=== PATIENT | male | born 1990 | race Caucasian/White ===

== ENCOUNTER 2023-08-27 04:21 | Emergency (ER) | payer OTHER, SELFPAY ==
[2023-08-27 04:22] VITALS: BMI 30.5
[2023-08-27 04:31] VITALS: BP 135/74
--- NOTE | 2023-08-27 04:47 | ED.GENMED ---
History of Present Illness
<DIMITRY Cullen - Last Filed: 08/27/23 06:34>
General
Chief Complaint: Chest Pain
Source: patient
Time Seen by Provider: 08/27/23 04:47
Travel History
Have you had any contact with someone who has COVID-19?: No
Do you have any symptoms of coronavirus? Fever > 100 degrees, chills, cough, shortness of breath, sore throat, loss of taste or smell, muscle aches, or headache?: No
History of Present Illness
History of Present Illness:
Pt is a pleasant 33 year old male with no significant PMHx presenting for chest pain since 3 am. He states he woke up from cramping in his quads and that is when he noticed his chest felt tight with a dull pain, pointing to his epigastric area. He
states the pain was a 6/10 in severity and is now a 2/10. He had an instance of the pain radiating to his back but states the pain is no longer radiating. He states he has been on his feet more than usual recently painting but otherwise denies any
changes to his workout routine, noting he exercised often. He reports mild nausea when he woke up but that has since dissipated. He states he tried taking Tums shortly after the onset of pain with no relief. He reports he was given aspirin and that
gave him some relief. He denies recent injury, SOB, diaphoresis, palpitations, arm pain, jaw pain, vomiting, abdominal pain, or recent sickness or travel. He states his father had a valvular issue, reporting he believes his father's tricuspid valve
only had two leaflets, leading to cardiomyopathy. He notes his father has since passed due to his heart condition.
Past History
<DIMITRY Cullen - Last Filed: 08/27/23 06:34>
Past History
ED Past Medical History: None
ED Past Surgical History: None
Social History
Tobacco: Non-smoker
Alcohol: Occasional
Personal: Single
Living: with family
Employment: Employed
Review of Systems
<DIMITRY Cullen - Last Filed: 08/27/23 06:34>
Review of Systems
All Other Systems: Not applicable
Constitutional: Reports no symptoms
EENT: Reports no symptoms
Respiratory: Reports no symptoms
Cardiac: Reports chest pain
ABD/GI: Reports nausea
: Reports no symptoms
Musculoskeletal: Reports other (leg cramping)
Skin: Reports no symptoms
Neurological: Reports no symptoms
Endocrine: Reports no symptoms
Hematologic/Lymphatic: Reports no symptoms
Psychiatric: Reports no symptoms
Phy Exam
<DIMITRY Cullen - Last Filed: 08/27/23 06:34>
General Physical Exam
General Presentation: well appearing and no apparent distress
General age: appears stated age
General Skin: warm and dry
General Habitus: normal
General Mental: alert
General Hydration: appears well hydrated
Cardiovascular Exam
Cardiovascular Exam: regular rate/rhythm, no edema, no gallop, no murmur, normal peripheral pulses and other (negative Eric's sign)
Pulmonary Exam
Pulmonary Exam: lungs clear, no respiratory distress and chest non tender
Gastrointestinal Exam
Gastrointestinal Exam: normal bowel sounds, non tender, soft, no pulsatile mass and non distended
Neurological Exam
Neurological Exam: alert
Mental
Mental Status: oriented to person, oriented to place and oriented to time
Musculoskeletal Exam
Musculoskeletal Exam: no edema
Skin Exam
Skin Exam: normal color and warm/dry
Psychiatric Exam
Psychiatric Exam: normal mood/affect
Scores
<DIMITRY Cullen - Last Filed: 08/27/23 06:34>
Heart Score for Chest Pain Patients
STEMI patient?: No
History: Slightly or Non-Suspicious
ECG: Nonspecific Repolarization
Age: </= 45 years
Risk Factors: No Risk Factors
Troponin: </= Normal Limit
Heart Score for Chest Pain Patients: 1
Heart Score Risk: 2.5% MACE over next 6 weeks
<Pankaj Massey, DO - Last Filed: 08/27/23 06:44>
Heart Score for Chest Pain Patients
Heart Score for Chest Pain Patients: 1
Heart Score Risk: 2.5% MACE over next 6 weeks
<Erik Thompson, DO - Last Filed: 08/27/23 10:39>
Heart Score for Chest Pain Patients
Heart Score for Chest Pain Patients: 1
Heart Score Risk: 2.5% MACE over next 6 weeks
Course
<Sara Mcfarlane STPA - Last Filed: 08/27/23 06:34>
Orders/Labs/Results
Orders:
Orders
08/27/23 04:28
Electrocardiogram (*1) Urgent
Reason for Study: Chest Pain
08/27/23 04:29
EKG- Treatment ONCE
08/27/23 04:42
Complete Blood Count/With Diff Urgent
Comprehensive Metabolic Panel Urgent
Troponin I Urgent
08/27/23 06:16
CR Chest - 2 Views Urgent
Comment:
Reason For Exam: cp
08/27/23 06:19
D-Dimer Urgent
08/27/23 09:21
Troponin I Urgent
08/27/23 09:23
EKG [Electrocardiogram (*1)] Urgent
Reason for Study: Chest Pain
Abnormal Lab Results
08/27/23
04:42
BUN 22 H mg/dl
(9-20)
Glucose 100 H mg/dl
(70-99)
03/22/24 04:42
08/27/23 04:42
Vital Signs
Initial and Last Documented VS:
Initial Vital Signs
Temp Pulse Resp BP Pulse Ox
97.8 F 55 16 135/74 95
08/27/23 04:31 08/27/23 04:31 08/27/23 04:31 08/27/23 04:31 08/27/23 04:31
Last Documented Vital Signs
Temp Pulse Resp BP Pulse Ox
97.8 F 56 16 124/65 96
08/27/23 04:31 08/27/23 08:15 08/27/23 09:20 08/27/23 07:00 08/27/23 07:00
<Pankaj Massey, DO - Last Filed: 08/27/23 06:44>
Orders/Labs/Results
Orders:
Orders
08/27/23 04:28
Electrocardiogram (*1) Urgent
Reason for Study: Chest Pain
08/27/23 04:29
EKG- Treatment ONCE
08/27/23 04:42
Complete Blood Count/With Diff Urgent
Comprehensive Metabolic Panel Urgent
Troponin I Urgent
08/27/23 06:16
CR Chest - 2 Views Urgent
Comment:
Reason For Exam: cp
08/27/23 06:19
D-Dimer Urgent
08/27/23 09:21
Troponin I Urgent
08/27/23 09:23
EKG [Electrocardiogram (*1)] Urgent
Reason for Study: Chest Pain
Abnormal Lab Results
08/27/23
04:42
BUN 22 H mg/dl
(02-24)
Glucose 100 H mg/dl
(-99)
08/27/23 04:42
08/27/23 04:42
Vital Signs
Initial and Last Documented VS:
Initial Vital Signs
Temp Pulse Resp BP Pulse Ox
97.8 F 55 16 135/74 95
08/27/23 04:31 08/27/23 04:31 08/27/23 04:31 08/27/23 04:31 08/27/23 04:31
Last Documented Vital Signs
Temp Pulse Resp BP Pulse Ox
97.8 F 56 16 124/65 96
08/27/23 04:31 08/27/23 08:15 08/27/23 09:20 08/27/23 07:00 08/27/23 07:00
<Erik Thompson, DO - Last Filed: 08/27/23 10:39>
Orders/Labs/Results
Orders:
Orders
08/27/23 04:28
Electrocardiogram (*1) Urgent
Reason for Study: Chest Pain
08/27/23 04:29
EKG- Treatment ONCE
08/27/23 04:42
Complete Blood Count/With Diff Urgent
Comprehensive Metabolic Panel Urgent
Troponin I Urgent
08/27/23 06:16
CR Chest - 2 Views Urgent
Comment:
Reason For Exam: cp
08/27/23 06:19
D-Dimer Urgent
08/27/23 09:21
Troponin I Urgent
08/27/23 09:23
EKG [Electrocardiogram (*1)] Urgent
Reason for Study: Chest Pain
Abnormal Lab Results
08/27/23
04:42
BUN 22 H mg/dl
(9-20)
Glucose 100 H mg/dl
(70-99)
08/27/23 04:42
08/27/23 04:42
Vital Signs
Initial and Last Documented VS:
Initial Vital Signs
Temp Pulse Resp BP Pulse Ox
97.8 F 55 16 135/74 95
08/27/23 04:31 08/27/23 04:31 08/27/23 04:31 08/27/23 04:31 08/27/23 04:31
Last Documented Vital Signs
Temp Pulse Resp BP Pulse Ox
97.8 F 56 16 124/65 96
08/27/23 04:31 08/27/23 08:15 08/27/23 09:20 08/27/23 07:00 08/27/23 07:00
<DIMITRY Cullen - Last Filed: 08/27/23 06:34>
MDM/Problems Addressed
Differential Diagnosis Includes:
CA, GERD, dehydration
MDM/Problems Addressed:
chest pain
<DIMITRY Cullen - Last Filed: 08/27/23 06:34>
*EKG
Interpretation: abnormal
Comparison EKG: no comparison EKG present
Rate: bradycardiac
Ischemia: non-specific ST changes
*Critical Care Note
Total Time (30-74mins, 75-104mins- exclusive of procedures): Not Applicable
<DIMITRY Cullen - Last Filed: 08/27/23 06:34>
Update Note
Update Note:
6:32 am, 08/27/23; Pt doing well and reassured EKG and lab results looked good at this time. Counseled pt an additional troponin and EKG will be done at 9 am this morning.
<Erik Thompson DO - Last Filed: 08/27/23 10:39>
Update Note
Update Note:
D-dimer negative, initial troponin negative. Chest x-ray personally viewed and shows no acute abnormality. Repeat EKG and repeat troponin unremarkable.
ED Attending Note
<DIMITRY Cullen - Last Filed: 08/27/23 06:34>
-
Portions of this chart may have been created with voice recognition software.� Occasional wrong word or��sound alike� substitutions may have occurred due to the inherent limitations of voice recognition software.
<Pankaj Massey DO - Last Filed: 08/27/23 06:44>
ED Attending Note
Patient seen and examined by attending physician: Yes
I performed the substantive portion of visit, reviewed & personally made and approve the management plan that is documented in note by myself or ARINA.: Yes
ED Attending Note:
Pleasant 33-year-old male that presents with chest pain that awakened him from sleep around 3 AM. Patient states that he had cramping in his quads. He states that his chest then began to feel tight. Patient initially had nausea but that has since
resolved. He tried to take Tums but that provided him no relief. He was given aspirin prehospital which provided some relief. Patient denies any medical problems. Reports no surgeries. He owns a [employer]. He does report that his dad passed
away at age 50 from a congenital heart defect. Patient has no complaints at time of exam. Patient was seen in conjunction with the PA student. I have reviewed and agree with the history and treatment plan presented. On my independent physical
exam, patient is awake, alert, and oriented x3 no acute distress. Heart is regular rate and rhythm. Lungs are clear to auscultation bilaterally without wheezes rales or rhonchi present. Abdomen soft nontender nondistended no pedal splenomegaly
present. Moves all 4 extremities. Skin is warm and dry. Good pulses present.
Discharge Plan
Departure
Condition: Good
Instructions: Chest Pain PCP Follow Up
Prescriptions:
No Action
No Current Medications
0
Referrals:
Gus Gallagher DO [Family Provider] -
Activity Restrictions/Additional Instructions:
It was a pleasure meeting you and taking part in your care. We hope for your continued healing and wellness.
Please read discharge instructions in their entirety. However, they are for general education and may not describe your exact diagnosis at discharge. Information on your ER visit and medical conditions were discussed with you along with appropriate
follow up information...
If indicated, please take your medications as instructed and indicated on discharge paperwork.
Please schedule a follow up appointment as directed. Call to schedule an appointment
Please return to the emergency department with ANY change in, persisting, or worsening of symptoms. If any of your symptoms do not improve, or persist, or become more severe within 6-12 hours, please return to the emergency department for further
care.
Please return to the emergency department if you develop a headache, neck pain/stiffness, fever greater than 100.4F, chest pain, shortness of breath, persistent nausea, vomiting, slurred speech, difficulty walking, numbness/tingling, weakness, signs
of infection or any other symptoms that are worrisome to you.
If you have any questions or concerns please do not hesitate to call the Hospital at or E-mail me directly at [email or web address]
Interventions
Interventions:
*Risk Screen - Suicide Last Done: 08/27/23 04:23
*General Assessment Last Done: 08/27/23 04:23
*Neglect/Abuse Screening Last Done: 08/27/23 04:23
ED- Fall Risk Assessment Last Done: 08/27/23 04:47
*ED COVID-19 Vaccine History Last Done: 08/27/23 04:23
ED- Cardiac Assessment Last Done: 08/27/23 04:47
[2023-08-27 04:56] LABS: % Basophils 0.4 % (0-2); % Eosinophils 0.7 % (0-6); % Immature Granulocytes 0.2 % (0-0.5); % Lymphocytes 28.1 % (20.5-51.1); % Monocytes 3.1 % (1.7-9.3); % Neutrophils 67.5 % (42.2-75.2); Absolute Eosinophils 0.1 10^3/uL (0-0.7); Absolute Lymphocytes 2.6 10^3/uL (1.2-3.4); Absolute Monocytes 0.3 10^3/uL (0.1-0.6); Absolute Neutrophils 6.2 10^3/uL (1.4-6.5); Hematocrit 44.1 % (39.0-52.0); Hemoglobin 16.2 g/dL (13.0-18.0); Mean Corp Hgb Conc. 36.7 g/dL (33.0-37.0); Mean Corpuscular Volume 84.5 fL (80.0-94.0); Mean Platelet Volume 9.2 fL (7.4-10.4); Nucleated Red Blood Cells % 0 % (-); Platelet Count 276 10^3/uL (130-400); Red Blood Cell Count 5.22 10^6/uL (4.70-6.10); Red Cell Dist. Width 11.9 % (11.5-14.5); White Blood Cell Count 9.2 10^3/uL (4.8-10.8)
[2023-08-27 05:23] LABS: ALT (SGPT) 37 U/L (0-50); AST (SGOT) 43 U/L (17-59); Albumin 4.8 g/dl (3.5-5.0); Alkaline Phosphatase 51 U/L (38-126); Blood Urea Nitrogen 22 mg/dl (9-20); Calcium 9.8 mg/dl (8.4-10.2); Carbon Dioxide 27 mmol/L (22-30); Chloride 100 mmol/L (98-107); Estimated Creatinine Clearance > 125 ml/min; Glucose 100 mg/dl (70-99); Potassium 4.2 mmol/L (3.5-5.1); Sodium 137 mmol/L (135-145); Total Bilirubin 0.5 mg/dl (0.2-1.3); Total Protein 7.5 g/dl (6.3-8.2); eGFR > 60.00
[2023-08-27 05:30] LABS: Troponin I < 0.012 ng/ml
[2023-08-27 05:45] VITALS: BP 125/57
[2023-08-27 06:00] VITALS: BP 136/55
[2023-08-27 07:00] VITALS: BP 124/65
[2023-08-27 08:08] LABS: D-Dimer < 0.27 ug/mlFEU (0.00-0.50)
[2023-08-27 10:03] LABS: Troponin I < 0.012 ng/ml
== END 2023-08-27 11:18 | disposition home or self-care (01) ==
LOC: EMR 04:21
PROVIDERS: EMERGENCY PHYSICIAN Student in an Organized Health Care Education/Training Program; FAMILY PHYSICIAN Family Medicine
DX: R07.9 Chest pain, unspecified (principal); R11.0 Nausea; R25.2 Cramp and spasm
CPT/HCPCS: 99285; 71046; 80053; 84484; 85025; 85379; 93005

== ENCOUNTER → 2023-09-14 10:55 | Outpatient (REF) | payer OTHER, SELFPAY | LOC: RCS 10:55 | PROVIDERS: ATTENDING PHYSICIAN Internal Medicine Cardiovascular Disease; FAMILY PHYSICIAN Family Medicine | DX: R94.31 Abnormal electrocardiogram [ECG] [EKG] (principal); R06.02 Shortness of breath; R07.89 Other chest pain | CPT/HCPCS: 93017; 93306 ==

== ENCOUNTER 2023-09-17 18:38 | Emergency (ER) | payer SELFPAY ==
[2023-09-17 19:00] VITALS: BP 137/76
[2023-09-17 20:04] VITALS: BMI 31.3
[2023-09-17] MEDS: MOTRIN 600 MG PO (20:22)
[2023-09-17] MEDS: ZOFRAN ODT (ORALLY DISINTEGRATING) 4 MG PO (20:22)
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
[2023-09-17] MEDS: VALIUM 5 MG PO (21:35)
[2023-09-17 21:41] VITALS: BP 133/76
== END 2023-09-17 21:47 | disposition home or self-care (01) ==
LOC: EMR 18:38
PROVIDERS: EMERGENCY PHYSICIAN Emergency Medicine; FAMILY PHYSICIAN Family Medicine
DX: S09.90XA Unspecified injury of head, initial encounter (principal); M54.2 Cervicalgia; V89.2XXA Person injured in unspecified motor-vehicle accident, traffic, initial encounter; Y92.410 Unspecified street and highway as the place of occurrence of the external cause
CPT/HCPCS: 99284; 70450; 72125